=== PATIENT | male | born 1990 | race Caucasian/White ===

== ENCOUNTER → 2019-12-17 14:33 | Outpatient (BNVA) | payer SELFPAY | PROVIDERS: Family Provider Nurse Practitioner Family; PCP Nurse Practitioner Family; Visit Provider Nurse Practitioner Family | DX: R52 Pain, unspecified (principal); R50.9 Fever, unspecified; H65.192 Other acute nonsuppurative otitis media, left ear | CPT/HCPCS: 87400 ==

== ENCOUNTER → 2020-10-27 13:27 | Outpatient (BNVA) | payer BC, SELFPAY | PROVIDERS: Family Provider Nurse Practitioner Family; PCP Nurse Practitioner Family; Visit Provider Family Medicine | DX: Z20.822 Contact with and (suspected) exposure to COVID-19 (principal); R05 Cough; R50.9 Fever, unspecified; R52 Pain, unspecified; J45.909 Unspecified asthma, uncomplicated | CPT/HCPCS: 87400; 87635 ==

== ENCOUNTER 2021-10-06 06:35 | Outpatient (CLI) | payer BC, SELFPAY ==
--- NOTE | 2021-10-06 07:15 | MR_ITS ---
WS: [id number] MRI RIGHT KNEE HISTORY: M25.561 - Pain in right knee COMPARISON: None available. Anterior cruciate ligament: Intact. Posterior cruciate ligament: Intact. Medial collateral ligament: Small amount of fluid adjacent to the MCL, no tear. Posterior lateral corner structures: Popliteus tendon is intact. There is a large amount of edema wit hin the popliteus muscle posterior to the tibial plateau. Edema extends along the tendon. Partial ten don tear in the body of the muscle should be considered although there is no retraction of the tendon . Medial menisci: Normal. Lateral meniscus: Small amount of intrasubstance degeneration anterior horn. Cannot confirm tear. Extensor mechanism: Distal quadriceps tendon and patellar tendons are intact. Fluid and soft tissue: Small suprapatellar effusion. There is fluid surrounding the medial head of th e gastrocnemius. Small amount of edema posterior to the tibial plateau with increased edema throughou t the popliteus muscle. No Prince's cyst. Osseous and articular structures: Patellofemoral compartment: Normal. Medial compartment: No significant joint space narrowing. No marrow edema. Lateral compartment: No significant joint space narrowing. There is a very small osteochondral defect near the base of the lateral tibial spine. No loose body identified. MR/MR knee RT wo con* [id number] IMPRESSION: 1. Large amount of edema within the popliteus muscle and surrounding the tendo n through the muscle. Consistent with the popliteus strain. Partial tear of the popliteus tendon should be considered although there is no retraction. The ins ertion site of the tendon is normal. 2. Small suprapatellar joint effusion. 3. Small amount of free fluid in the medial head of the gastrocnemius.
== END 2021-10-06 06:36 | disposition home or self-care (01) ==
PROVIDERS: PCP Nurse Practitioner Family; Visit Provider Nurse Practitioner Family
DX: M25.461 Effusion, right knee (principal); R60.0 Localized edema
CPT/HCPCS: 73721

== ENCOUNTER → 2021-10-13 15:43 | Outpatient (BNVA) | payer BC, SELFPAY | PROVIDERS: PCP Nurse Practitioner Family; Referring Provider Nurse Practitioner Family; Visit Provider Specialist | DX: M25.561 Pain in right knee (principal) | CPT/HCPCS: 73560; 73565 ==

== ENCOUNTER → 2024-08-23 11:00 | Outpatient (BNVA) | payer BC, SELFPAY | PROVIDERS: PCP Nurse Practitioner Family; Visit Provider Nurse Practitioner Family | DX: R05.3 Chronic cough (principal) | CPT/HCPCS: 71046 ==